=== PATIENT | female | born 2000 | race American Indian/Alaskan Native ===

== ENCOUNTER 2020-08-30 19:11 | Emergency (ER) | payer SELFPAY ==
--- NOTE | 2020-08-30 19:19 | Event Note ---
ED Screening Note ED Screening Note: co generalized abd pain tachycardia in triage lmp 08/23 pos n/v/d This initial assessment/diagnostic orders/clinical plan/treatment(s) is/are subject to change based on patients health status, clinical progression and re- assessment by fellow clinical providers in the ED. Further treatment and workup at subsequent clinical providers discretion. Patient/guardian urged not to elope from the ED as their condition may be serious if not clinically assessed and managed. Initial orders include: labs ua xray
[2020-08-30 20:01] LABS: Hemoglobin 12.7 gm/dl (10.1-14.3); Mean Corpuscular HGB Conc 34 % (30-34); Mean Corpuscular Volume 86 fl (79-97); Platelet Count 270 K/mm3 (140-440); Red Blood Count 4.44 M/mm3 (3.65-5.03); Red Cell Distribution Width 13.2 % (13.2-15.2)
[2020-08-30 20:06] LABS: Lymphocytes % (Auto) 5.5 % (13.4-35.0); Monocytes % (Auto) 4.1 % (0.0-7.3)
[2020-08-30 20:07] LABS: Basophils % (Auto) 0.1 % (0.0-1.8); Lymphocytes # (Auto) 1.2 K/mm3 (1.2-5.4); Monocytes # (Auto) 0.9 K/mm3 (0.0-0.8)
[2020-08-30] MEDS ORDERED: SODIUM CHLORIDE 0.9% 1000 ML 1,000 ML IV ONE (20:09)
[2020-08-30] MEDS ORDERED: CEFEPIME/NS 2 GM/100 ML 2 GM/100 ML BAG IV ONE (20:10)
[2020-08-30 20:24] LABS: Alanine Aminotransferase 10 units/L (7-56); Albumin 3.9 g/dL (3.9-5); BUN/Creatinine Ratio 10; Blood Urea Nitrogen 10 mg/dL (7-17); Calcium 9.3 mg/dL (8.4-10.2); Hemolysis Index 0
[2020-08-30 20:40] LABS: Bacteria,Urine 1+ /HPF (Negative); Bilirubin,Urine NEG (Negative); Blood,Urine SM (Negative); Color,Urine Yellow (Yellow); Mucus,Urine 3+ /HPF
[2020-08-30 20:41] LABS: HCG Qualitative,Urine Negative (Negative)
[2020-08-30 20:47] VITALS: BP 145/90
--- NOTE | 2020-08-30 21:10 | Emergency Department Report ---
ED Abdominal Pain HPI - General Chief Complaint: Abdominal Pain Stated Complaint: APPENDITICS Time Seen by Provider: 08/30/20 19:17 Source: patient Mode of arrival: Ambulatory Limitations: No Limitations - History of Present Illness Initial Comments: The patient was evaluated in the emergency department for symptoms described in the history of present illness. He/she was evaluated in the context of the global COVID-19 pandemic, which necessitated consideration that the patient might be at risk for infection with the virus that causes COVID-19. Ins titutional protocols and algorithms that pertain to the evaluation of patients at risk for COVID-19 are in a state of rapid change based on information released by regulatory bodies including the CDC and federal and state organizations. These policies and algorithms were followed during the patient's care in the emergency department. Please note that these policies, procedures and recommendations changed on a rapid basis. 20-year-old -[place] female presents to the emergency room for a 2-day history of severe abdominal pain with nausea and vomiting. Patient states that he started little on the of this month and then has gotten worse on the . Patient reports that it is in the lower abdomen. Patient denies any fever but admits to chills. MD Complaint: abdominal pain - Related Data Previous Rx's Medication Instructions Recorded Last Taken Type Ondansetron [Zofran Odt] 4 mg PO Q8HR #12 tab.rapdis 08/31/20 Unknown Rx levoFLOXacin [Levaquin TAB] 500 mg PO QDAY #7 tablet 08/31/20 Unknown Rx metroNIDAZOLE [Flagyl] 500 mg PO Q12HR 7 Days #14 tab 08/31/20 Unknown Rx Allergies Allergy/AdvReac Type Severity Reaction Status Date / Time guaifenesin [From Robitussin] Allergy Unknown Verified 08/30/20 19:19 ED Review of Systems ROS: Stated complaint: APPENDITICS Other details as noted in HPI ED Past Medical Hx - Past Medical History Previous Medical History?: No - Surgical History Past Surgical History?: No - Social History Smoking Status: Never Smoker Substance Use Type: None - Medications Home Medications: Home Medications Medication Instructions Recorded Confirmed Last Taken Type Ondansetron [Zofran Odt] 4 mg PO Q8HR #12 tab.rapdis 08/31/20 Unknown Rx levoFLOXacin [Levaquin TAB] 500 mg PO QDAY #7 tablet 08/31/20 Unknown Rx metroNIDAZOLE [Flagyl] 500 mg PO Q12HR 7 Days #14 tab 08/31/20 Unknown Rx ED Physical Exam - General Limitations: No Limitations ED Course Vital Signs 08/30/20 19:18 Temperature 98.2 F Pulse Rate 145 H Respiratory 18 Rate Blood Pressure 145/90 O2 Sat by Pulse 96 Oximetry ED Medical Decision Making - Lab Data Result diagrams: 08/30/20 19:43 08/30/20 19:43 Critical care attestation.: If time is entered above; I have spent that time in minutes in the direct care of this critically ill patient, excluding procedure time. ED Disposition Clinical Impression: Abdominal pain, Inflammatory bowel disease Disposition: TO HOME OR SELFCARE Is pt being admited?: No Does the pt Need Aspirin: No Condition: Stable Instructions: Abdominal Pain (ED) Additional Instructions: Please complete antibiotics as prescribed. Is very important for you to follow- up with a track watchman I have listed their information below for your convenience. Please take the Zofran as needed for the nausea. Prescriptions: metroNIDAZOLE [Flagyl] 500 mg PO Q12HR 7 Days #14 tab levoFLOXacin [Levaquin TAB] 500 mg PO QDAY #7 tablet Ondansetron [Zofran Odt] 4 mg PO Q8HR #12 tab.rapdis Forms: Work/School Release Form(ED)
--- NOTE | 2020-08-30 22:41 | Cat Scan Report ---
CT abdomen pelvis w con INDICATION: Abdominal pain with nausea and vomiting. TECHNIQUE: All CT scans at this location are performed using CT dose reduction for ALARA by means of automated e xposure control. COMPARISON: None available. FINDINGS: Lung bases are clear of acute disease. Liver, gallbladder, spleen, pancreas, kidneys and adrenals are negative. Abdominal aorta is normal in size. Pelvis Diffuse abnormality of the small bowel, with distention and wall thickening of numerous loops, both p roximally and distally. There is no evidence of obstruction. Colon appears unremarkable. No free flui d. Uterus and urinary bladder are negative. IMPRESSION: 1. Diffuse small bowel abnormality, most likely inflammation, with no evidence of obstruction. Findin gs suggest inflammatory bowel disease. Signer Name: Rikki Doran MD Signed: 08/30/2020 10:37 PM Workstation Name: [id number]
[2020-08-30] MEDS ORDERED: ONDANSETRON 4 MG/2 ML INJ IV ONE (22:54)
[2020-08-30] MEDS ORDERED: MORPHINE 4 MG/1 ML INJ IV ONE (22:54)
[2020-08-30] MEDS ORDERED: metroNIDAZOLE/NS 500 MG/100 ML 500 MG/100 ML BAG IV ONE (22:59)
[2020-08-30] MEDS ORDERED: levoFLOXacin 500 MG TAB PO ONE (23:00)
== END 2020-08-31 01:16 | disposition home or self-care (01) ==
LOC: ED 19:11
DX: K52.9 Noninfective gastroenteritis and colitis, unspecified (principal); R10.9 Unspecified abdominal pain; Z79.899 Other long term (current) drug therapy; Z88.8 Allergy status to other drugs, medicaments and biological substances
CPT/HCPCS: 36415; 74177; 80053; 81001; 81025; 82140; 83690; 84703; 85025; 87040; 87086; 96365; 99284; J0692; J2270; J2405; J7030; Q9967